=== PATIENT | male | born 1940 | race Caucasian/White ===

== ENCOUNTER 2017-07-10 12:07 | Emergency (ER) | payer MEDICARE, BC ==
[~2017-07-10 12:07] MED LIST: Sodium Chloride Irrig Solution 250 ML BOT ONE
[2017-07-10] MEDS ORDERED: Lidocaine 1% 20 ML MDV ONE (12:39)
[2017-07-10] MEDS ORDERED: TETANUS AND DIPHTHERIA TOX/PF 0.5 ML DISP.SYRIN ONE (12:53)
[2017-07-10] MEDS ORDERED: Triple Antibiotic Oint 1 GM Packet ONE (13:34)
[2017-07-10] MEDS ORDERED: Cephalexin 500 MG CAP ONE ×2 (13:38→13:40)
== END 2017-07-10 14:00 | disposition home or self-care (01) ==
LOC: MADERS 12:07
DX: S61.412A Laceration without foreign body of left hand, initial encounter (principal); S63.8X2A Sprain of other part of left wrist and hand, initial encounter; I48.91 Unspecified atrial fibrillation; Z79.899 Other long term (current) drug therapy; W26.0XXA Contact with knife, initial encounter
CPT/HCPCS: 12002; 90471; J2001